=== PATIENT | female | born 1945 | race Caucasian/White ===

== ENCOUNTER 2019-05-23 11:58 | Emergency (ER) | payer MEDICARE, SELFPAY ==
--- NOTE | ~2019-05-23 | XR_ITS ---
EXAMINATION: XR lumbar spine 2-3V DATE: 05/23/2019 13:29 INDICATION: Low back pain. Fall. TECHNIQUE: 3 views of lumbar spine were obtained. COMPARISON: Lumbar spine radiographs 07/31/2015 FINDINGS: There is 11 degrees dextroscoliosis of thoracolumbar spine. There is a chronic compression fracture of L4 with changes of vertebroplasty. There is moderately decreased disc height at L3-L4. Th ere are endplate osteophytes at all levels. There is at least mild multilevel facet joint osteoarthri tis. A surgical clip overlies the pelvis. IMPRESSION: 1. Moderate lumbar spondylosis. 2. Thoracolumbar dextroscoliosis. Reviewed, dictated and finalized at location A. LE ATTENDANT
--- NOTE | ~2019-05-23 | XR_ITS ---
EXAMINATION: XR wrist LT 2V EXAM DATE: 05/23/2019 13:29 INDICATION: Initial encounter following injury, with pain of the left wrist. TECHNIQUE: Left wrist frontal, frontal with ulnar deviation, oblique and lateral projections obtained and reviewed. Correlation was made with left hand same date. FINDINGS: Again there is acute left fifth metacarpal shaft fracture. There are no acute left wrist fr actures or dislocations identified. There is no subcutaneous gas. The soft tissue is unremarkable. There are no radiopaque foreign bodies. There is triscaphe primary osteoarthritis. IMPRESSION: 1. Left fifth metacarpal shaft fracture. 2. No left wrist fractures. Reviewed, dictated and finalized at location B. ER CENTER DIRECTOR
--- NOTE | ~2019-05-23 | XR_ITS ---
EXAMINATION: XR hand LT 2V DATE: 05/23/2019 13:29 INDICATION: Left hand pain. Fall. TECHNIQUE: 3 views of left hand were obtained. COMPARISON: None. FINDINGS: Bone alignment is normal. There is a comminuted fracture of distal diaphysis of fifth metac arpal. The main distal fracture fragment demonstrates 1 mm palmar displacement. There is diffuse oste openia. There is severe osteoarthritis of triscaphe joint and first carpometacarpal joint. There is m ild to moderate osteoarthritis of many of the interphalangeal joints. IMPRESSION: 1. Comminuted fracture of distal diaphysis of fifth metacarpal. Reviewed, dictated and finalized at location A. NEERING LIBRARIAN
[2019-05-23 12:23] VITALS: BP 145/71; PULSE 83; RESP 16; TEMP 36.8; O2SAT 97
[2019-05-23 12:36] LABS: Appearance Urine Cloudy (Clear); Bilirubin Urine Negative (Negative); Color Urine Amber (Yellow); Glucose Urine UA Negative (Negative); Ketones Urine Negative (Negative); Leukocyte Esterase Ur Trace LEU/UL (Negative); Nitrate Urine Negative (Negative); Protein Urine Negative (Negative); Specific Grav Ur >= 1.030 (1.010-1.020)
[2019-05-23 12:41] LABS: Add Urine Microscopic? YES; Bacteria Urine 1+ /hpf; Blood Urine Trace-Intact (Negative); Mucus Urine Moderate /lpf; RBC Urine 0-2 /hpf (0-2); Squamous Epithelial Cell Urine Moderate /hpf (Few); WBC Urine 0-3 /hpf (0-3)
[2019-05-23] MEDS: KETOROLAC (*BKC) 60 MG/2 ML VIAL IM (13:11)
--- NOTE | 2019-05-23 13:18 | ED.BACK ---
HPI - Back Pain/Injury General Chief Complaint: Back Pain/Injury Stated Complaint: fell back pain Source: patient and family Mode of arrival: ambulatory History of Present Illness HPI Narrative: 74-year-old female with history of dementia and hypertension presents after she fell earlier while in her bathroom did not strike her head there was no loss of consciousness currently no blurry vision no nausea or vomiting the patient did hit her left hand habit has good range of motion although there is bruising and swelling, also has history of compression fractures with some lumbar fusion, and is having lower back pain with some small contusion to the left lower back area. Currently no chest pain no shortness of breath no rib pain no nausea vomiting abdominal pain no constipation or diarrhea. MD elicited complaint: back pain and fall Pertinent past history: prior back pain Onset (ago): hour(s) Timing: constant Severity: mild Pain scale (0-10): 4 Similar Symptoms Previously: No Quality: dull Location: lumbar spine Related Data Home Medications Medication Instructions Recorded Confirmed azithromycin 05/23/19 05/23/19 bupropion HCl PO 05/23/19 donepezil mg 05/23/19 escitalopram oxalate mg 05/23/19 felodipine mg PO 05/23/19 levothyroxine 05/23/19 losartan 05/23/19 memantine mg 05/23/19 omeprazole 05/23/19 prednisone 05/23/19 raloxifene mg 05/23/19 simvastatin mg 05/23/19 Allergies Allergy/AdvReac Type Severity Reaction Status Date / Time hydrochlorothiazide Allergy Unknown Flushing Verified 05/23/19 13:22 iohexol Allergy Hives Verified 05/23/19 13:22 [From contrast - CT, X-RAY] Review of Systems Review of Systems: All systems reviewed & are unremarkable except as noted in HPI and below PMFSH Past Medical History Medical History Dementia HTN (hypertension) Family History Family History Mother Diabetes mellitus Family history of malignant neoplasm Father Cerebrovascular accident Family history of heart disease in male family member before age 55 Social History Social History Smoking status: Never smoker Alcohol intake: never Exam Const: General: no acute distress and alert Other: Has a history of dementia HENMT: Head: contusion and hematoma Other: left hand and left lower back area Eyes: Conjunctivae: conjunctivae normal Pupils: Equal, round and reactive pupils present Neck: Neck: normal visual inspection and no lymphadenopathy Chest: Chest palpation & inspection: normal inspection of the chest Resp: Effort & Inspection: normal respiratory effort Auscultation: clear to auscultation bilaterally Cardio: Rate: regular rate Rhythm: regular rhythm : General: Yes no CVA tenderness Skin: General skin exam: normal color Rashes: no rashes Neuro: General: moves all extremities Extrem: General: normal to inspection Psych: Appearance: grossly normal Affect: normal affect Course Vital Signs Vital signs: Vital Signs Temperature 36.8 C 05/23/19 12:23 Pulse Rate 83 05/23/19 12:23 Respiratory Rate 16 05/23/19 12:23 Blood Pressure 145/71 H 05/23/19 12:23 Pulse Oximetry 97 05/23/19 12:23 Temperature 36.8 C 05/23/19 12:23 Pulse Rate 83 05/23/19 12:23 Respiratory Rate 16 05/23/19 12:23 Blood Pressure 145/71 H 05/23/19 12:23 Pulse Oximetry 97 05/23/19 12:23 MDM - Back Pain/Injury Lab Data Labs: Lab Results 05/23/19 Range/Units 12:27 Urine Color Shara A (Yellow) Urine Appearance Cloudy A (Clear) Urine pH 6.0 (5.0-8.0) Ur Specific [place] >= 1.030 H (1.010-1.020) Urine Protein Negative (Negative) Urine Glucose (UA) Negative (Negative) Urine Ketones Negative (Negative) Ur Blood (Man) Trace-intact H (Negative) Urine Nitrat
[2019-05-23 14:22] VITALS: RESP 17
--- NOTE | 2019-05-23 14:30 | PC.NURSE ---
JENNIFER ULNAR GUTTER SPLINT DR GOMEZ
== END 2019-05-23 14:23 | disposition home or self-care (01) ==
PROVIDERS: Emergency Provider Emergency Medicine; PCP Internal Medicine
DX: S62.327A Displaced fracture of shaft of fifth metacarpal bone, left hand, initial encounter for closed fracture (principal); W19.XXXA Unspecified fall, initial encounter
CPT/HCPCS: 29125; 72100; 73100; 73120; 81001; 96372; 99282; 99284; A4565; J1885

== ENCOUNTER 2020-02-14 09:27 | Outpatient (CLI) | payer MEDICARE, SELFPAY ==
[2020-02-14 09:44] LABS: Basophils Absolute Auto 0.03 K/mm3 (0.00-0.10); Basophils Percent Auto 0.5 % (0.0-1.0); Eosinophils Absolute Auto 0.12 K/mm3 (0.02-0.50); Hematocrit 40.9 % (35.0-42.0); Hemoglobin 12.7 g/dL (11.7-13.8); Immature Granulocyte Absolute 0.02 K/mm3 (0.00-0.00); Immature Granulocyte Percent A 0.3 % (0.0-0.0); Lymphocytes Absolute Auto 1.85 K/mm3 (1.10-4.50); Lymphocytes Percent Auto 30.3 % (18.0-42.0); Mean Corpuscular HGB Conc 31.1 g/dL (32.0-36.0); Mean Corpuscular Hemoglobin 32.6 pg (27.0-31.0); Mean Corpuscular Volume 104.9 fL (78.0-102.0); Mean Platelet Volume 10.9 fl (9.2-11.8); Monocytes Absolute Auto 0.55 K/mm3 (0.10-0.90); Neutrophils Absolute Auto 3.5 K/mm3 (1.7-7.2); Neutrophils Percent Auto 57.9 % (50.0-70.0); Platelet Count Result 233 K/mm3 (150-420); Red Cell Distribution Width 13.3 % (11.6-14.4); White Blood Count 6.1 K/mm3 (4.8-10.8)
[2020-02-14 10:43] LABS: Alanine Aminotransferase 19 U/L (14-59); Albumin Level 3.3 g/dL (3.4-5.0); Alkaline Phosphatase 90 U/L (46-116); Anion Gap 8 mmol/L (8-16); Aspartate Amino Transferase 15 U/L (15-37); Bilirubin,Total 0.4 mg/dL (0.00-1.00); Blood Urea Nitrogen 25 mg/dL (7-18); Calcium 8.9 mg/dL (8.5-10.1); Carbon Dioxide 28 mmol/L (21-32); Chloride 107 mmol/L (98-108); Estimated Glomerular Filt Rate 50; Glucose 160 mg/dL (70-99); Osmolality Calculated 303 mOsm/kg (285-295); Potassium 4.3 mmol/L (3.5-5.1); Sodium 143 mmol/L (136-145); Thyroid Stimulating Hormone 4.97 uIU/mL (0.36-3.74); Total Protein 6.5 g/dL (6.4-8.2); Vitamin B12 252 pg/mL (193-986)
== END 2020-02-14 09:28 | disposition home or self-care (01) ==
LOC: CHSLAB 09:30
PROVIDERS: PCP Internal Medicine
DX: G31.83 Neurocognitive disorder with Lewy bodies (principal); F02.80 Dementia in other diseases classified elsewhere, unspecified severity, without behavioral disturbance, psychotic disturbance, mood disturbance, and anxiety; Z79.899 Other long term (current) drug therapy
CPT/HCPCS: 36415; 80053; 82607; 84443; 85025

== ENCOUNTER 2020-02-28 13:31 | Outpatient (CLI) | payer MEDICARE, SELFPAY ==
[2020-02-28 15:00] LABS: Vitamin B12 328 pg/mL (193-986)
== END 2020-02-28 13:32 | disposition home or self-care (01) ==
LOC: CHSLAB 13:41
PROVIDERS: PCP Internal Medicine
DX: G31.83 Neurocognitive disorder with Lewy bodies (principal); F02.80 Dementia in other diseases classified elsewhere, unspecified severity, without behavioral disturbance, psychotic disturbance, mood disturbance, and anxiety
CPT/HCPCS: 36415; 82607

== ENCOUNTER 2020-06-01 09:17 | Outpatient (CLI) | payer MEDICARE, SELFPAY ==
[2020-06-01 13:16] LABS: SARS-CoV-2 Ag Positive (Negative)
== END 2020-06-01 09:18 | disposition home or self-care (01) ==
PROVIDERS: PCP Internal Medicine; Visit Provider Internal Medicine
DX: U07.1 COVID-19 (principal)
CPT/HCPCS: 87426; C9803

== ENCOUNTER 2020-06-11 12:32 | Inpatient (IN) | payer MEDICARE, SELFPAY ==
--- NOTE | ~2020-06-11 | XR_ITS ---
XR chest 2V DATE: 06/11/2020 13:41 INDICATION: Shortness of breath and weakness TECHNIQUE: AP and lateral views COMPARISON: 08/09/2018 PA and lateral chest FINDINGS: Borderline heart size. Aortic calcification. No hilar or mediastinal enlargement. Mild patchy infiltrate is suggested in the right mid and lower lung zones. The lungs otherwise appear clear. No pleural effusion or pulmonary vascular congestion or pneumothorax. Diffuse osteopenia. There is prominent anterior wedging and loss of height of a thoracolumbar vertebral body. There appea rs to be vertebroplasty at a lower lumbar vertebral body. IMPRESSION: Patchy right mid and lower lung field infiltrate suggesting pneumonia. Clinical correlati on is advised. Prominent anterior wedging and loss of height of a thoracolumbar vertebral body; diffuse osteopenia Reviewed, dictated and finalized at location B. OSOFT BI CONSULTANT IMPRESSION: Patchy right mid and lower lung field infiltrate suggesting pneumon ia. Clinical correlation is advised. Prominent anterior wedging and loss of height of a thoracolumbar vertebral body ; diffuse osteopenia
--- NOTE | ~2020-06-11 | NM_ITS ---
EXAMINATION: NM pulmonary perfusion DATE: 06/12/2020 11:05 INDICATION: Dyspnea with elevated d-dimer TECHNIQUE: 5.3 mCi Tc-99m MAA was administered IV. Scintigraphic images of the chest were obtained. FINDINGS: There is relatively homogeneous perfusion throughout the lungs. Perfusion defect identified. IMPRESSION: 1. Low probability for pulmonary embolism. Reviewed, dictated and finalized at location A. O RIGGER
[2020-06-11 12:53] VITALS: BP 130/84; PULSE 79; RESP 20; TEMP 37.1; O2SAT 93
--- NOTE | 2020-06-11 12:59 | ECG_ITS ---
Measurements Intervals Gerber Rate: 63 P: 67 NM: 213 QRS: -48 QRSD: 105 T: 29 QT: 452 QTc: 466 Interpretive Statements SINUS RHYTHM WITH FIRST DEGREE AV BLOCK LEFT ANTERIOR FASCICULAR BLOCK BORDERLINE T WAVE ABNORMALITY- ANT/INF LEADS BASELINE ARTIFACT- II, III, AVR, AVF ABNORMAL ECG Electronically Signed On 06-11-2020 13:52:20 HOUSEKEEPER AND LAUNDRY ASSISTANT by Matt Thornton D.O.
[2020-06-11] MEDS: SODIUM CHLORIDE 0.9% IV 500 ML 999 ML IV CONT (13:24)
[2020-06-11 13:37] LABS: Base Excess ABG -4.8 mmol/L (0-2); Basophils Absolute Auto 0.02 K/mm3 (0.00-0.10); Basophils Percent Auto 0.4 % (0.0-1.0); Eosinophils Absolute Auto 0.02 K/mm3 (0.02-0.50); Eosinophils Percent Auto 0.4 % (1.0-6.0); HCO3 ABG 18.3 mmol/L (23-29); Hematocrit 35.1 % (35.0-42.0); Hemoglobin 11.4 g/dL (11.7-13.8); Immature Granulocyte Absolute 0.03 K/mm3 (0.00-0.00); Immature Granulocyte Percent A 0.5 % (0.0-0.0); Lymphocytes Absolute Auto 0.67 K/mm3 (1.10-4.50); Lymphocytes Percent Auto 12.2 % (18.0-42.0); Mean Corpuscular HGB Conc 32.5 g/dL (32.0-36.0); Mean Corpuscular Hemoglobin 31.8 pg (27.0-31.0); Mean Corpuscular Volume 97.8 fL (78.0-102.0); Monocytes Percent Auto 9.1 % (2.0-11.0); Neutrophils Absolute Auto 4.2 K/mm3 (1.7-7.2); Neutrophils Percent Auto 77.4 % (50.0-70.0); Oxygen Content ABG 16.3 %vol (16.0-22.0); Oxygen Saturation ABG 96.3 % (95-97); PCO2 ABG 28.4 mmHg (35-45); Platelet Count Result 227 K/mm3 (150-420); Red Blood Count 3.59 M/mm3 (4.20-5.40); Red Cell Distribution Width 13.4 % (11.6-14.4); Total Hemoglobin 12.1 g/dL; White Blood Count 5.5 K/mm3 (4.8-10.8); pH ABG 7.43 (7.35-7.45)
[2020-06-11 13:42] LABS: Site Drawn LEFT RADIAL
[2020-06-11 13:43] LABS: Device ROOM AIR; Modified Allen's Test Pass
[2020-06-11 13:52] LABS: Partial Thromboplastin Time 26.9 SEC (23.90-30.70); Prothrombin Time 10.5 Seconds (9.50-12.10)
[2020-06-11 13:55] LABS: Albumin Level 2.5 g/dL (3.4-5.0); Alkaline Phosphatase 71 U/L (46-116); Anion Gap 13 mmol/L (8-16); Aspartate Amino Transferase 16 U/L (15-37); Bilirubin,Total 0.6 mg/dL (0.00-1.00); Blood Urea Nitrogen 11 mg/dL (7-18); Calcium 8.5 mg/dL (8.5-10.1); Carbon Dioxide 24 mmol/L (21-32); Chloride 104 mmol/L (98-108); Estimated CRCL calculation 39 ml/min; Estimated Glomerular Filt Rate 48; Glucose 165 mg/dL (70-99); Lactic Acid Reflex 2.4 mmol/L (0.4-2.0); Magnesium 1.8 mg/dL (1.8-2.4); Osmolality Calculated 295 mOsm/kg (285-295); Potassium 3.4 mmol/L (3.5-5.1); Sodium 141 mmol/L (136-145); Total Protein 6.1 g/dL (6.4-8.2); Troponin I 6.5 ng/L (0.00-60.4)
[2020-06-11 13:57] LABS: CRP 4.3 mg/dL (0.0-0.9)
[2020-06-11 13:58] LABS: BNP 34.2 pg/mL (0-100)
[2020-06-11 14:00] LABS: Influenza Control Valid (Valid)
[2020-06-11 14:01] LABS: SARS-CoV-2 Ag Negative (Negative)
[2020-06-11 14:03] LABS: Alanine Aminotransferase 7 U/L (14-59)
--- NOTE | 2020-06-11 14:16 | ED.WEAKNESS ---
HPI - Weakness General Chief complaint: Weakness Stated complaint: tested + two weeks ago weak diarrhea Source: patient and family Mode of arrival: ambulatory Limitations: no limitations History of Present Illness HPI Narrative: This is a 75-year-old female presents from home with her daughter after she developed spell of weakness over the last 24 hours with some mild shortness of breath, and diminish O2 saturations. The patient recently had been diagnosed with COVID on May 29, currently there is no cough no fever chills no nausea vomiting no chest pain no abdominal pain. Patient has a history of dementia, hyperlipidemia and hypertension. Currently she is resting comfortable O2 sats currently are 93% on room air with no current shortness of breath no cough. According to her daughter the patient has a history of diabetes but is controlled with diet and has not been on any medications for diabetes. MD Complaint: generalized weakness Onset (ago): day(s) Duration: constant Location: generalized Migration: none Severity: moderate Associated symptoms: loss of appetite and shortness of breath Related Data Home Medications Medication Instructions Recorded Confirmed donepezil 10 mg PO DAILY 05/23/19 06/11/20 escitalopram oxalate [Lexapro] 20 mg PO DAILY 05/23/19 06/11/20 felodipine 10 mg PO HS 05/23/19 06/11/20 levothyroxine 75 mcg PO DAILY 05/23/19 06/11/20 memantine 10 mg PO BID 05/23/19 06/11/20 omeprazole 20 mg PO DAILY 05/23/19 06/11/20 raloxifene 60 mg PO DAILY 05/23/19 06/11/20 simvastatin 10 mg PO HS 05/23/19 06/11/20 bupropion HCl 100 mg PO DAILY 06/11/20 06/11/20 losartan 100 mg PO DAILY 06/11/20 06/11/20 Allergies Allergy/AdvReac Type Severity Reaction Status Date / Time hydrochlorothiazide Allergy Unknown Flushing Verified 06/11/20 13:00 iohexol Allergy Hives Verified 06/11/20 13:00 [From contrast - CT, X-RAY] Review of Systems Review of Systems: All systems reviewed & are unremarkable except as noted in HPI and below PMFSH Past Medical History Medical History Anxiety Arthritis Dementia Depression Diabetes Diarrhea Dizziness GERD (gastroesophageal reflux disease) Headache High cholesterol HTN (hypertension) Hypothyroidism Osteoporosis Vertigo Vision abnormalities Weight gain Surgical History Surgical History History of spinal surgery Cemented disc, lumbar Family History Family History Mother Diabetes mellitus Family history of malignant neoplasm Father Cerebrovascular accident Family history of heart disease in male family member before age 55 Other Arthritis Social History Social History Smoking status: Never smoker Alcohol intake: never Gender identity (if verbalized by the patient): Female Exam Const: General: no acute distress Orientation/consciousness: confusion HENMT: Head: normal to inspection Eyes: Conjunctivae: conjunctivae normal Pupils: Equal, round and reactive pupils present EOM: EOMs intact bilaterally Neck: Neck: normal visual inspection, no lymphadenopathy and no meningeal signs Chest: Chest palpation & inspection: normal inspection of the chest Resp: Effort & Inspection: normal respiratory effort Auscultation: diminished lung sounds Cardio: Rate: regular rate Rhythm: regular rhythm GI: GI Palp: Yes Soft to palpation Percussion: Yes normal to percussion : General: Yes no CVA tenderness Back/Spine/Pelvis: Back: no CVA tenderness Skin: General skin exam: normal color Rashes: no rashes Extrem: General: normal to inspection Psych: Mental Status: mental status grossly normal Thought content: Yes Normal thought content present Course Course Emergency Course: Reviewed findings with family and the hannah
[2020-06-11 14:45] VITALS: BP 111/61; PULSE 80; RESP 20; O2SAT 93
--- NOTE | 2020-06-11 14:50 | PC.NURSE ---
Patient admitted to room 208, oriented to room and call light. In bed with rails up and exit alarm on. Daughter Anjali at bedside.
[2020-06-11 15:28] VITALS: BMI 38.5
--- NOTE | 2020-06-11 15:51 | ADMGEN ---
This patient, Mary Kent, was admitted to 2nd Floor Room 208-2. Patient/family oriented to hospital policies and general routines including ID bracelet, bed and alarms, visiting hours, pain management, procedures, bathroom and other care routines, personal items, smoking policy, room service/diet, and visiting hours. Information on how to activate the Rapid Response Team has been discussed. Patient/Family are encouraged to report perceived risks to care and to ask questions if they do not understand what they are told or what they should do.
[2020-06-11] MEDS: SODIUM CHLORIDE 0.9% IV 1,000 ML 100 ML IV CONT (15:53)
[2020-06-11 16:00] VITALS: BP 120/72; PULSE 66; RESP 18; TEMP 37.3; O2SAT 92
[2020-06-11 16:32] LABS: Reflex Lactic Acid Yes or No Add Lactic
[2020-06-11] MEDS: MEMANTINE 5 MG TABLET 10 MG PO (16:45)
[2020-06-11] MEDS: ENOXAPARIN 100 MG/ML SYRINGE 90 MG SUB-Q (16:46)
[2020-06-11 16:53] LABS: Glucose Point of Care 180 (65-105)
[2020-06-11 17:08] LABS: Lactic Acid 6.5 mmol/L (0.4-2.0)
[2020-06-11 20:00] VITALS: BP 138/57; PULSE 70; RESP 16; TEMP 37.4; O2SAT 93
[2020-06-11] MEDS: FELODIPINE 5 MG TAB CR 10 MG PO (20:55)
[2020-06-11] MEDS: ACETAMINOPHEN 325 MG TABLET 650 MG PO (20:56)
[2020-06-11] MEDS: SIMVASTATIN 10 MG TABLET PO (20:57)
[2020-06-11 21:13] LABS: Glucose Point of Care 96 (65-105)
[2020-06-12] VITALS (8 sets, daily range): BP systolic 113–139; BP diastolic 48–66; PULSE 62–80; RESP 14–20; TEMP 36.5–37.2; O2SAT 91–98
[2020-06-12] MEDS: SODIUM CHLORIDE 0.9% IV 1,000 ML 100 ML IV CONT ×3 (02:44→21:25)
[2020-06-12] MEDS: ENOXAPARIN 100 MG/ML SYRINGE 90 MG SUB-Q (03:41)
[2020-06-12 05:51] LABS: Basophils Absolute Auto 0.01 K/mm3 (0.00-0.10); Basophils Percent Auto 0.2 % (0.0-1.0); Eosinophils Absolute Auto 0.08 K/mm3 (0.02-0.50); Eosinophils Percent Auto 1.9 % (1.0-6.0); Hematocrit 32.2 % (35.0-42.0); Hemoglobin 10.1 g/dL (11.7-13.8); Immature Granulocyte Absolute 0.03 K/mm3 (0.00-0.00); Immature Granulocyte Percent A 0.7 % (0.0-0.0); Lymphocytes Absolute Auto 0.95 K/mm3 (1.10-4.50); Mean Corpuscular HGB Conc 31.4 g/dL (32.0-36.0); Mean Corpuscular Volume 98.8 fL (78.0-102.0); Mean Platelet Volume 9.8 fl (9.2-11.8); Monocytes Absolute Auto 0.48 K/mm3 (0.10-0.90); Monocytes Percent Auto 11.6 % (2.0-11.0); Neutrophils Absolute Auto 2.6 K/mm3 (1.7-7.2); Neutrophils Percent Auto 62.6 % (50.0-70.0); Platelet Count Result 217 K/mm3 (150-420); Red Blood Count 3.26 M/mm3 (4.20-5.40); Red Cell Distribution Width 13.4 % (11.6-14.4); White Blood Count 4.1 K/mm3 (4.8-10.8)
[2020-06-12 05:59] LABS: Add Urine Microscopic? YES; Appearance Urine Clear (Clear); Bilirubin Urine Negative (Negative); Blood Urine Negative (Negative); Color Urine Yellow (Yellow); Glucose Urine UA Negative (Negative); Ketones Urine Trace (Negative); Leukocyte Esterase Ur Trace LEU/UL (Negative); Nitrate Urine Negative (Negative); Protein Urine Negative (Negative); Urobilinogen Urine 0.2 mg/dL (0.2-1.0)
[2020-06-12 06:06] LABS: Alanine Aminotransferase 9 U/L (14-59); Albumin Level 2.2 g/dL (3.4-5.0); Alkaline Phosphatase 62 U/L (46-116); Anion Gap 11 mmol/L (8-16); Aspartate Amino Transferase 12 U/L (15-37); Bilirubin,Total 0.5 mg/dL (0.00-1.00); Blood Urea Nitrogen 6 mg/dL (7-18); Calcium 7.5 mg/dL (8.5-10.1); Carbon Dioxide 26 mmol/L (21-32); Chloride 109 mmol/L (98-108); Estimated CRCL calculation 46 ml/min; Estimated Glomerular Filt Rate 58; Glucose 122 mg/dL (70-99); Osmolality Calculated 300 mOsm/kg (285-295); Sodium 146 mmol/L (136-145); Total Protein 5.4 g/dL (6.4-8.2)
[2020-06-12 06:12] LABS: RBC Urine 0-2 /hpf (0-2); Squamous Epithelial Cell Urine Few /hpf (Few)
[2020-06-12 06:12] LABS: Lactic Acid Reflex 1.2 mmol/L (0.4-2.0)
[2020-06-12 06:13] LABS: Bacteria Urine None seen /hpf
[2020-06-12] MEDS: KCL 20 MEQ/SW 100 ML 100 ML 50 MEQ IVPB (07:23)
--- NOTE | 2020-06-12 08:18 | PM.IMHP ---
H&P: HPI History of Present Illness Date/Time: 06/12/20 08:18 Chief Complaint: SOB Narrative: Mary Kent is a 75 year old female with a Hx of Lewy body Dementia and therefor a poor historian. She came into the hospital with her daughter who provided history of events per ER documentation. Pt was having episodes of weakness, mild SOB, and decreased oxygen saturation. Pt was positive for COVID on June 01, 2020 but is negative after a Rapid COVID test was performed in the ER. Pt was negative for fever, chills, cough, N/V, body aches, and other abdominal issues. Pt has a PMHx of Dementia, depression, anxiety, diet controlled diabetes, GERD, hypercholesterolemia, HTN, hypothyroidism. Pt was found to have right middle and lower lobe pneumonia and was started on Rocephin and Azithromycin in the ER. Review of Systems Constitutional: Constitutional: Reports no additional constitutional complaints, Denies body ache(s), Denies chills, Denies fever(s), Denies headache(s) and Reports other (Pt states she just feels icky but unable to give more detail) Cardiovascular: Cardiovascular: Reports no additional cardiovascular complaints and Denies chest pain Respiratory: Respiratory: Reports no additional respiratory complaints and Denies dyspnea Gastrointestinal: Gastrointestinal: Reports no additional gastrointestinal complaints [facility] Past Medical History Medical History (Updated 06/12/20 @ 10:12 by ROLAN ComerN-C) Anxiety Arthritis Basal cell carcinoma (BCC) of dorsum of nose Dementia Depression Diabetes Diarrhea Dizziness GERD (gastroesophageal reflux disease) Headache High cholesterol HTN (hypertension) Hypothyroidism Osteoporosis Vertigo Vision abnormalities Weight gain Surgical History Surgical History History of spinal surgery Cemented disc, lumbar Family History Family History Mother Diabetes mellitus Family history of malignant neoplasm Father Cerebrovascular accident Family history of heart disease in male family member before age 55 Other Arthritis Social History Social History Smoking status: Never smoker Second hand tobacco smoke exposure: No Alcohol intake: never Substance use: never Substance use type: does not use Gender identity (if verbalized by the patient): Female Spiritual care concerns: No Meds Home Medications and Allergies Home Medications Medication Instructions Recorded Confirmed Type donepezil 10 mg PO DAILY 05/23/19 06/11/20 History escitalopram oxalate [Lexapro] 20 mg PO DAILY 05/23/19 06/11/20 History felodipine 10 mg PO HS 05/23/19 06/11/20 History levothyroxine 75 mcg PO DAILY 05/23/19 06/11/20 History memantine 10 mg PO BID 05/23/19 06/11/20 History omeprazole 20 mg PO DAILY 05/23/19 06/11/20 History raloxifene 60 mg PO DAILY 05/23/19 06/11/20 History simvastatin 10 mg PO HS 05/23/19 06/11/20 History bupropion HCl 100 mg PO DAILY 06/11/20 06/11/20 History losartan 100 mg PO DAILY 06/11/20 06/11/20 History Allergies Allergy/AdvReac Type Severity Reaction Status Date / Time hydrochlorothiazide Allergy Unknown Flushing Verified 06/11/20 13:00 iohexol Allergy Hives Verified 06/11/20 13:00 [From contrast - CT, X-RAY] Vital Signs Vital Signs - 24 hr 06/11/20 12:53 06/11/20 14:45 06/11/20 16:00 Temperature 98.7 F 99.2 F Pulse Rate 79 80 66 Respiratory Rate 20 20 18 Blood Pressure 130/84 111/61 120/72 Pulse Oximetry 93 93 92 06/11/20 20:00 06/12/20 00:00 06/12/20 03:49 Temperature 99.3 F 98.2 F 98.0 F Pulse Rate 70 62 66 Respiratory Rate 16 18 14 Blood Pressure 138/57 L 113/48 L 116/66 Pulse Oximetry 93 96 98 06/12/20 07:47 Temperature 98.9 F Pulse Rate 79 Respiratory Rate 16 Blood Pressure 120/50 L Pulse Oximetry 91 Exam Const: General: co
[2020-06-12] MEDS: LEVOTHYROXINE SODIUM 75 MCG TABLET PO (08:24)
[2020-06-12] MEDS: LOSARTAN POTASSIUM 50 MG TABLET 100 MG PO (08:24)
[2020-06-12] MEDS: CALCIUM CARBONATE (OSCAL) 500 MG TABLET PO ×2 (08:24→16:33)
[2020-06-12] MEDS: MEMANTINE 5 MG TABLET 10 MG PO ×2 (08:24→16:33)
[2020-06-12] MEDS: ESCITALOPRAM OXALATE 10 MG TABLET 20 MG PO (08:24)
[2020-06-12] MEDS: DONEPEZIL HCL 5 MG TABLET 10 MG PO (08:25)
[2020-06-12] MEDS: PANTOPRAZOLE 40 MG TABLET PO (09:35)
[2020-06-12] MEDS: PROCHLORPERAZINE MALEATE 5 MG TABLET PO (10:01)
[2020-06-12 11:37] LABS: Glucose Point of Care 135 (65-105)
[2020-06-12 11:37] LABS: Glucose Point of Care 108 (65-105)
--- NOTE | 2020-06-12 13:29 | PHAR ---
Meds from home identified [facility] Rx#[id number] Raloxifene 60 mg tablet daily [facility] Rx# [id number] Bupropion SR 100 mg daily
[2020-06-12] MEDS: RALOXIFENE 60 MG TABLET PO (13:59)
[2020-06-12] MEDS: BUPROPION SR 100 MG TABLET PO (13:59)
[2020-06-12 16:41] LABS: Glucose Point of Care 117 (65-105)
--- NOTE | 2020-06-12 18:07 | PC.NURSE ---
1800 up and down in bed. up in chair for supper. refuses supper. belches frequent.. did sip on white soda, refuses Mylanta. had two sm scant loose stool. only in tissue now in hat. back to bed at this time. stand by assist. hob up. call light in reach. alarms on. vin horton
[2020-06-12] MEDS: FELODIPINE 2.5 MG TABCR 10 MG PO (20:33)
[2020-06-12] MEDS: SIMVASTATIN 10 MG TABLET PO (21:24)
[2020-06-13 01:57] LABS: Glucose Point of Care 109 (65-105)
[2020-06-13 04:00] VITALS: BP 135/57; PULSE 79; RESP 20; TEMP 36.2; O2SAT 92
[2020-06-13 05:37] LABS: Hematocrit 32.1 % (35.0-42.0); Hemoglobin 10.1 g/dL (11.7-13.8); Mean Corpuscular HGB Conc 31.5 g/dL (32.0-36.0); Mean Corpuscular Hemoglobin 31.1 pg (27.0-31.0); Mean Corpuscular Volume 98.8 fL (78.0-102.0); Mean Platelet Volume 9.7 fl (9.2-11.8); Platelet Count Result 253 K/mm3 (150-420); Red Blood Count 3.25 M/mm3 (4.20-5.40); Red Cell Distribution Width 13.5 % (11.6-14.4); White Blood Count 5.4 K/mm3 (4.8-10.8)
[2020-06-13 05:49] LABS: Anion Gap 10 mmol/L (8-16); Blood Urea Nitrogen 2 mg/dL (7-18); Calcium 7.6 mg/dL (8.5-10.1); Carbon Dioxide 24 mmol/L (21-32); Chloride 111 mmol/L (98-108); Estimated CRCL calculation 54 ml/min; Estimated Glomerular Filt Rate > 60; Glucose 126 mg/dL (70-99); Magnesium 1.5 mg/dL (1.8-2.4); Osmolality Calculated 298 mOsm/kg (285-295); Potassium 3.1 mmol/L (3.5-5.1); Sodium 145 mmol/L (136-145)
[2020-06-13 08:00] VITALS: BP 136/61; PULSE 90; RESP 20; TEMP 37.5; O2SAT 93
[2020-06-13] MEDS: PANTOPRAZOLE 40 MG TABLET PO (08:49)
[2020-06-13] MEDS: RALOXIFENE 60 MG TABLET PO (08:49)
[2020-06-13] MEDS: MEMANTINE 5 MG TABLET 10 MG PO ×2 (08:49→16:57)
[2020-06-13] MEDS: CALCIUM CARBONATE (OSCAL) 500 MG TABLET PO ×2 (08:49→16:57)
[2020-06-13] MEDS: LEVOTHYROXINE SODIUM 75 MCG TABLET PO (08:49)
[2020-06-13] MEDS: BUPROPION SR 100 MG TABLET PO (08:49)
[2020-06-13] MEDS: DONEPEZIL HCL 5 MG TABLET 10 MG PO (08:49)
[2020-06-13] MEDS: SODIUM CHLORIDE 0.9% IV 1,000 ML 100 ML IV CONT ×2 (08:50→17:35)
[2020-06-13] MEDS: ESCITALOPRAM OXALATE 10 MG TABLET 20 MG PO (08:50)
[2020-06-13] MEDS: LOSARTAN POTASSIUM 50 MG TABLET 100 MG PO (08:50)
[2020-06-13] MEDS: ENOXAPARIN 40 MG/0.4 ML SYRINGE SUB-Q (08:51)
[2020-06-13] MEDS: POTASSIUM CHLORIDE 20 MEQ PACKET (FOR LIQUID) 40 MEQ PO (09:02)
[2020-06-13] MEDS: POTASSIUM CHLORIDE 20 MEQ TABLET 40 MEQ PO (09:04)
[2020-06-13] MEDS: PROCHLORPERAZINE MALEATE 5 MG TABLET PO (09:04)
[2020-06-13] MEDS: MAGNESIUM SULF 4 GM/WATER100ML 4 GM/100 ML BAG IVPB (09:05)
--- NOTE | 2020-06-13 10:30 | PC.NURSE ---
left message for pt for need of eval
--- NOTE | 2020-06-13 11:24 | PM.IMPN ---
Progress Note: A&P Assessment and Plan (1) Pneumonia: Qualifiers: Laterality: right Lung location: middle lobe of lung Pneumonia type: due to unspecified organism Qualified Code(s): J18.9 - Pneumonia, unspecified organism Code(s): J18.9 - Pneumonia, unspecified organism Status: Acute Assessment and Plan: 06/12/2020 Radiology reports Right mid and lower lung pneumonia, Rocephin and Azithromycin started, SpO2 > 95%, administer supplemental O2 as needed, monitor VS and Pt (2) Elevated d-dimer: Code(s): R79.89 - Other specified abnormal findings of blood chemistry Status: Acute Assessment and Plan: 06/12/2020 Started on Lovenox 90 mg SQ BID, Pt to have VQ scan today, result of VQ scan was low probability of PE (3) Diabetes: Code(s): E11.9 - Type 2 diabetes mellitus without complications Status: Acute Assessment and Plan: 06/12/2020 Previous charts indicates diet controlled, ACHS Accu-Cheks, SSI, hypoglycemic protocol ordered, make any adjustments as need (4) HTN (hypertension): Code(s): I10 - Essential (primary) hypertension Status: Acute Assessment and Plan: 06/12/2020 Continue Losartan and Felodipine, monitor VS, make any adjustments as needed (5) Dementia: Code(s): F03.90 - Unspecified dementia without behavioral disturbance Status: Acute Assessment and Plan: 06/12/2020 Continue Memantine and Donepezil, attempt to reorient Pt (6) Osteoporosis: Code(s): M81.0 - Age-related osteoporosis without current pathological fracture Status: Acute Assessment and Plan: 06/12/2020 Continue Raloxifene, started on Oscal in ER. (7) Hypothyroidism: Code(s): E03.9 - Hypothyroidism, unspecified Status: Acute Assessment and Plan: 06/12/2020 Continue Levothyroxine (8) High cholesterol: Code(s): E78.00 - Pure hypercholesterolemia, unspecified Status: Acute Assessment and Plan: 06/12/2020 Continue Simvastatin (9) Depression: Code(s): F32.9 - Major depressive disorder, single episode, unspecified Status: Acute Assessment and Plan: 06/12/2020 Continue Bupropion and Lexapro, monitor Pt mood and affect. Subjective Date/time seen: 06/13/20 11:24 Pt states she feels icky again today but is not able to explain in more detail. RN for the Pt today states the Pt was complaining of an upset stomach which Compazine was given. Pt is alert and oriented to person and place. Pt did need a little help with place. Pt denies breathing difficulty, CP, urinary issues, difficulty with BMs. Pt admits she does not have a good appetite. Review of Systems Constitutional: Constitutional: Reports no additional constitutional complaints and Reports poor appetite Cardiovascular: Cardiovascular: Reports no additional cardiovascular complaints, Denies chest pain, Denies chest pain at rest and Denies chest pain with activity Respiratory: Respiratory: Reports no additional respiratory complaints, Denies chest congestion, Denies dyspnea and Denies dyspnea on exertion Gastrointestinal: Gastrointestinal: Reports no additional gastrointestinal complaints, Reports diarrhea (per RN) and Reports nausea Neurologic: Reports system reviewed and no additional complaints, except as documented Comments: Admits she was having difficulty remembering the year and season Exam Const: General: cooperative, comfortable, no acute distress, alert, awake and Physically active Nutritional Appearance: obese Resp: Effort & Inspection: normal respiratory effort Auscultation: clear to auscultation bilaterally Cardio: Rate: regular rate Heart sounds: S1 normal heart sound present and S2 normal heart sound present GI: GI Palp: Yes Soft to palpation and No Tenderness to palpation present (GI) Auscultation: Hypoactive bowel sounds present Neuro: General: oriented to person and oriented to place (with help) Speech: normal
[2020-06-13 11:57] LABS: Glucose Point of Care 143 (65-105)
[2020-06-13 12:00] VITALS: BP 134/68; PULSE 82; RESP 18; TEMP 37.2; O2SAT 95
[2020-06-13] MEDS: MAG HYDROX/AL HYDROX/SIMETH 30 ML UDC PO (12:23)
[2020-06-13 16:00] VITALS: BP 136/58; PULSE 70; RESP 16; TEMP 37.1; O2SAT 95
[2020-06-13 17:04] LABS: Glucose Point of Care 118 (65-105)
[2020-06-13 20:00] VITALS: BP 143/59; PULSE 67; RESP 20; TEMP 36.8; O2SAT 92
[2020-06-13] MEDS: FELODIPINE 2.5 MG TABCR 10 MG PO (20:38)
[2020-06-13] MEDS: SIMVASTATIN 10 MG TABLET PO (20:38)
[2020-06-13 20:56] LABS: Glucose Point of Care 98 (65-105)
--- NOTE | 2020-06-13 21:07 | PC.NURSE ---
Wellness Health Coach attempted to collect stool specimen to send to lab, bowel movement occurred, contaminated with urine. Will attempt again. spreader notified.
[2020-06-14] VITALS: BP 145/62; PULSE 73; RESP 18; TEMP 36.8; O2SAT 94
[2020-06-14 04:00] VITALS: BP 116/81; PULSE 71; RESP 18; TEMP 36.9; O2SAT 92
[2020-06-14] MEDS: SODIUM CHLORIDE 0.9% IV 1,000 ML 100 ML IV CONT ×2 (04:15→18:21)
[2020-06-14 05:27] LABS: Hematocrit 31.9 % (35.0-42.0); Hemoglobin 10.2 g/dL (11.7-13.8); Mean Corpuscular Hemoglobin 31.5 pg (27.0-31.0); Mean Corpuscular Volume 98.5 fL (78.0-102.0); Mean Platelet Volume 9.9 fl (9.2-11.8); Platelet Count Result 273 K/mm3 (150-420); Red Blood Count 3.24 M/mm3 (4.20-5.40); Red Cell Distribution Width 13.5 % (11.6-14.4); White Blood Count 5.2 K/mm3 (4.8-10.8)
[2020-06-14 05:40] LABS: Anion Gap 10 mmol/L (8-16); Blood Urea Nitrogen 1 mg/dL (7-18); Calcium 7.7 mg/dL (8.5-10.1); Carbon Dioxide 23 mmol/L (21-32); Chloride 110 mmol/L (98-108); Estimated CRCL calculation 56 ml/min; Estimated Glomerular Filt Rate > 60; Glucose 121 mg/dL (70-99); Magnesium 1.7 mg/dL (1.8-2.4); Osmolality Calculated 292 mOsm/kg (285-295); Potassium 3.5 mmol/L (3.5-5.1); Sodium 143 mmol/L (136-145)
[2020-06-14 07:30] VITALS: BP 107/51; PULSE 73; RESP 18; TEMP 37.7; O2SAT 96
[2020-06-14 08:00] LABS: Glucose Point of Care 109 (65-105)
[2020-06-14] MEDS: PROCHLORPERAZINE MALEATE 5 MG TABLET PO (08:16)
[2020-06-14] MEDS: MAGNESIUM SULF 2 GM/WATER 50ML 2 GM/50 ML BAG IVPB (08:17)
[2020-06-14] MEDS: MAG HYDROX/AL HYDROX/SIMETH 30 ML UDC PO (08:17)
[2020-06-14] MEDS: BUPROPION SR 100 MG TABLET PO (09:10)
[2020-06-14] MEDS: RALOXIFENE 60 MG TABLET PO (09:10)
[2020-06-14] MEDS: MEMANTINE 5 MG TABLET 10 MG PO ×2 (09:11→16:46)
[2020-06-14] MEDS: CALCIUM CARBONATE (OSCAL) 500 MG TABLET PO ×2 (09:11→16:47)
[2020-06-14] MEDS: LEVOTHYROXINE SODIUM 75 MCG TABLET PO (09:11)
[2020-06-14] MEDS: DONEPEZIL HCL 5 MG TABLET 10 MG PO (09:11)
[2020-06-14] MEDS: ENOXAPARIN 40 MG/0.4 ML SYRINGE SUB-Q (09:11)
[2020-06-14] MEDS: ESCITALOPRAM OXALATE 10 MG TABLET 20 MG PO (09:11)
[2020-06-14] MEDS: MAGNESIUM OXIDE 400 MG TABLET PO ×2 (09:11→16:47)
[2020-06-14] MEDS: PANTOPRAZOLE 40 MG TABLET PO (09:11)
[2020-06-14 12:00] VITALS: BP 136/57; PULSE 70; RESP 18; TEMP 36.9; O2SAT 96
[2020-06-14 12:06] LABS: Glucose Point of Care 126 (65-105)
--- NOTE | 2020-06-14 14:28 | PM.IMPN ---
Progress Note: A&P Assessment and Plan (1) Pneumonia: Qualifiers: Laterality: right Lung location: middle lobe of lung Pneumonia type: due to unspecified organism Qualified Code(s): J18.9 - Pneumonia, unspecified organism Code(s): J18.9 - Pneumonia, unspecified organism Status: Acute Assessment and Plan: 06/12/2020 Radiology reports Right mid and lower lung pneumonia, Rocephin and Azithromycin started, SpO2 > 95%, administer supplemental O2 as needed, monitor VS and Pt 06/14/2020 May possibly send Pt home tomorrow, She would benefit with PT, spoke with Daughter Maribel who lives with the Pt and she thinks PT would be a good idea. (2) Elevated d-dimer: Code(s): R79.89 - Other specified abnormal findings of blood chemistry Status: Acute Assessment and Plan: 06/12/2020 Started on Lovenox 90 mg SQ BID, Pt to have VQ scan today, result of VQ scan was low probability of PE 06/14/2020 Lovenox decreased yesterday after VQ scan results, no increase in Oxygen demands, no calf or leg tenderness, no pitting edema bilateral LE (3) Diabetes: Code(s): E11.9 - Type 2 diabetes mellitus without complications Status: Acute Assessment and Plan: 06/12/2020 Previous charts indicates diet controlled, ACHS Accu-Cheks, SSI, hypoglycemic protocol ordered, make any adjustments as need 06/14/2020 Diet changes to Consistent Carb Diet, glucose levels look good. (4) HTN (hypertension): Code(s): I10 - Essential (primary) hypertension Status: Acute Assessment and Plan: 06/12/2020 Continue Losartan and Felodipine, monitor VS, make any adjustments as needed 06/14/2020 no adjustments needed at this time. (5) Dementia: Code(s): F03.90 - Unspecified dementia without behavioral disturbance Status: Acute Assessment and Plan: 06/12/2020 Continue Memantine and Donepezil, attempt to reorient Pt 06/14/2020 Daughter today states Pt is basically at her baseline and notes that Pt does fluctuate at times. (6) Osteoporosis: Code(s): M81.0 - Age-related osteoporosis without current pathological fracture Status: Acute Assessment and Plan: 06/12/2020 Continue Raloxifene, started on Oscal in ER. 06/14/2020 Continue with regimen (7) Hypothyroidism: Code(s): E03.9 - Hypothyroidism, unspecified Status: Acute Assessment and Plan: 06/12/2020 Continue Levothyroxine 06/14/2020 ... (8) High cholesterol: Code(s): E78.00 - Pure hypercholesterolemia, unspecified Status: Acute Assessment and Plan: 06/12/2020 Continue Simvastatin 06/14/2020 ... (9) Depression: Code(s): F32.9 - Major depressive disorder, single episode, unspecified Status: Acute Assessment and Plan: 06/12/2020 Continue Bupropion and Lexapro, monitor Pt mood and affect. 06/14/2020 ... Subjective Date/time seen: 06/14/20 14:28 Pt has not complaints until a food try is placed in front of her. Pt then states she does not have and appetite and once in a while will say she feels ikky pointing at her epigastric area. Pt does have some belching once in a while. She has taken Compazine and this has helped a little. Added Reglan today to see if this may help do more then pecking at her food with minimal intake. Denies SOB, CP, body aches, changes in taste (previous COVID 06/01/2020). She does admit at times that she is a little tired. Review of Systems Review of Systems: Narrative: As noted in Subjective above. Exam Const: General: cooperative, comfortable, no acute distress, alert, awake, Physically active and confusion (at times) Nutritional Appearance: obese Resp: Effort & Inspection: normal respiratory effort, no cough, not labored, no nasal flaring and no respiratory distress Auscultation: clear to auscultation bilaterally Cardio: Rate: regular rate Heart sounds: S1 normal heart sound present and S2 normal heart sound present GI: GI Palp: Ye
[2020-06-14 16:00] VITALS: BP 122/60; PULSE 64; RESP 18; TEMP 36.9; O2SAT 95
[2020-06-14] MEDS: METOCLOPRAMIDE HCL 5 MG TABLET PO ×2 (16:48→20:30)
[2020-06-14 16:53] LABS: Glucose Point of Care 127 (65-105)
[2020-06-14 18:38] LABS: Occult Blood Negative (Negative)
[2020-06-14 20:00] VITALS: BP 127/50; PULSE 68; RESP 18; TEMP 36.7; O2SAT 94
[2020-06-14] MEDS: FELODIPINE 2.5 MG TABCR 10 MG PO (20:25)
[2020-06-14] MEDS: SIMVASTATIN 10 MG TABLET PO (20:26)
[2020-06-14 20:35] LABS: Glucose Point of Care 117 (65-105)
[2020-06-15] VITALS: BP 132/49; PULSE 69; RESP 18; TEMP 37.1; O2SAT 92
[2020-06-15 04:00] VITALS: BP 130/55; PULSE 67; RESP 18; TEMP 36.4; O2SAT 92
[2020-06-15] MEDS: SODIUM CHLORIDE 0.9% IV 1,000 ML 100 ML IV CONT (04:59)
[2020-06-15 05:24] LABS: Hematocrit 35.3 % (35.0-42.0); Mean Corpuscular HGB Conc 31.2 g/dL (32.0-36.0); Mean Corpuscular Hemoglobin 30.6 pg (27.0-31.0); Mean Corpuscular Volume 98.1 fL (78.0-102.0); Mean Platelet Volume 9.5 fl (9.2-11.8); Platelet Count Result 310 K/mm3 (150-420); Red Cell Distribution Width 13.3 % (11.6-14.4); White Blood Count 4.5 K/mm3 (4.8-10.8)
[2020-06-15 05:39] LABS: Albumin Level 2.5 g/dL (3.4-5.0); Alkaline Phosphatase 69 U/L (46-116); Anion Gap 9 mmol/L (8-16); Aspartate Amino Transferase 20 U/L (15-37); Bilirubin,Total 0.4 mg/dL (0.00-1.00); Blood Urea Nitrogen 1 mg/dL (7-18); Calcium 7.7 mg/dL (8.5-10.1); Carbon Dioxide 25 mmol/L (21-32); Chloride 109 mmol/L (98-108); Estimated CRCL calculation 50 ml/min; Estimated Glomerular Filt Rate > 60; Glucose 111 mg/dL (70-99); Magnesium 1.9 mg/dL (1.8-2.4); Osmolality Calculated 292 mOsm/kg (285-295); Potassium 3.4 mmol/L (3.5-5.1); Sodium 143 mmol/L (136-145); Total Protein 5.9 g/dL (6.4-8.2)
[2020-06-15 05:40] LABS: Alanine Aminotransferase < 6 U/L (14-59)
[2020-06-15] MEDS: METOCLOPRAMIDE HCL 5 MG TABLET PO (06:10)
--- NOTE | 2020-06-15 06:17 | PC.NURSE ---
Lab results this AM, BUN was 1. Charge nurse notified and spoke with . New orders to stop fluids and saline lock IV. Automobile Body Repairer stopped IV fluids, NS @100cc/hr, at 0611.
[2020-06-15 07:42] VITALS: BP 113/53; PULSE 72; RESP 18; TEMP 37.2; O2SAT 94
[2020-06-15 07:50] LABS: Glucose Point of Care 111 (65-105)
[2020-06-15] MEDS: BUPROPION SR 100 MG TABLET PO (09:32)
[2020-06-15] MEDS: RALOXIFENE 60 MG TABLET PO (09:32)
[2020-06-15] MEDS: ENOXAPARIN 40 MG/0.4 ML SYRINGE SUB-Q (09:32)
[2020-06-15] MEDS: MAGNESIUM OXIDE 400 MG TABLET PO (09:33)
[2020-06-15] MEDS: CALCIUM CARBONATE (OSCAL) 500 MG TABLET PO (09:33)
[2020-06-15] MEDS: POTASSIUM CHLORIDE 20 MEQ TABLET PO (09:33)
[2020-06-15] MEDS: DONEPEZIL HCL 5 MG TABLET 10 MG PO (09:33)
[2020-06-15] MEDS: ESCITALOPRAM OXALATE 10 MG TABLET 20 MG PO (09:33)
[2020-06-15] MEDS: LEVOTHYROXINE SODIUM 75 MCG TABLET PO (09:34)
[2020-06-15] MEDS: MEMANTINE 5 MG TABLET 10 MG PO (09:34)
[2020-06-15] MEDS: LOSARTAN POTASSIUM 50 MG TABLET 100 MG PO (09:34)
[2020-06-15] MEDS: PANTOPRAZOLE 40 MG TABLET PO (09:34)
[2020-06-15] MEDS: MAG HYDROX/AL HYDROX/SIMETH 30 ML UDC PO (11:29)
[2020-06-15] MEDS: LOPERAMIDE HCL 2 MG CAPSULE 4 MG PO (11:29)
[2020-06-15] MEDS: METOCLOPRAMIDE HCL 10 MG TABLET 5 MG PO (11:30)
[2020-06-15 11:39] LABS: Glucose Point of Care 112 (65-105)
[2020-06-15 12:00] VITALS: BP 124/60; PULSE 72; RESP 18; TEMP 37.1; O2SAT 94
--- NOTE | 2020-06-15 12:14 | PM.DS ---
DS: Admitting Diagnosis Admitting Diagnosis Admitting Diagnosis: Pneumonia, Weakness, Elevated D-Dimer <Arden SantosADRIAN Akins - Last Filed: 06/15/20 12:59> DS: Discharge Diagnosis Discharge Diagnosis (1) Pneumonia: Qualifiers: Laterality: right Lung location: middle lobe of lung Pneumonia type: due to unspecified organism Qualified Code(s): J18.9 - Pneumonia, unspecified organism <Arden TomADRIAN Akins - Last Filed: 06/15/20 12:59> Code(s): J18.9 - Pneumonia, unspecified organism <Arden SantosADRIAN Akins - Last Filed: 06/15/20 12:59> Status: Acute <Arden Sadler ADRIAN Talamantes - Last Filed: 06/15/20 12:59> Assessment and Plan: 06/12/2020 Radiology reports Right mid and lower lung pneumonia, Rocephin and Azithromycin started, SpO2 > 95%, administer supplemental O2 as needed, monitor VS and Pt 06/14/2020 May possibly send Pt home tomorrow, She would benefit with PT, spoke with Daughter Maribel who lives with the Pt and she thinks PT would be a good idea. 06/15/2020 HH has been set up and Pt will be seen by them on Monday is my understanding, will send Pt home with Azithromycin, Pt continues to be on room air, daughter Maribel will be assisting Pt after DC at home. <ADRIAN Comer - Last Filed: 06/15/20 12:59> (2) Elevated d-dimer: Code(s): R79.89 - Other specified abnormal findings of blood chemistry <ADRIAN Comer - Last Filed: 06/15/20 12:59> Status: Acute <Arden TomADRIAN Akins - Last Filed: 06/15/20 12:59> Assessment and Plan: 06/12/2020 Started on Lovenox 90 mg SQ BID, Pt to have VQ scan today, result of VQ scan was low probability of PE 06/14/2020 Lovenox decreased yesterday after VQ scan results, no increase in Oxygen demands, no calf or leg tenderness, no pitting edema bilateral LE 06/15/2020 Pt has not had any increased O2 demand, no labored breathing <ADRIAN Comer - Last Filed: 06/15/20 12:59> (3) Diabetes: Code(s): E11.9 - Type 2 diabetes mellitus without complications <ADRIAN Comer - Last Filed: 06/15/20 12:59> Status: Acute <ADRIAN Comer - Last Filed: 06/15/20 12:59> Assessment and Plan: 06/12/2020 Previous charts indicates diet controlled, ACHS Accu-Cheks, SSI, hypoglycemic protocol ordered, make any adjustments as need 06/14/2020 Diet changes to Consistent Carb Diet, glucose levels look good. 06/15/2020 glucose looks well controlled, Pt to f/u with PCP after DC in about 1 week <ADRIAN Comer - Last Filed: 06/15/20 12:59> (4) HTN (hypertension): Code(s): I10 - Essential (primary) hypertension <ADRIAN Comer - Last Filed: 06/15/20 12:59> Status: Acute <ADRIAN Comer - Last Filed: 06/15/20 12:59> Assessment and Plan: 06/12/2020 Continue Losartan and Felodipine, monitor VS, make any adjustments as needed 06/14/2020 no adjustments needed at this time. 06/15/2020 continue current medications on DC <ADRIAN Comer - Last Filed: 06/15/20 12:59> (5) Dementia: Code(s): F03.90 - Unspecified dementia without behavioral disturbance <ADRIAN Comer - Last Filed: 06/15/20 12:59> Status: Acute <ADRIAN Comer - Last Filed: 06/15/20 12:59> Assessment and Plan: 06/12/2020 Continue Memantine and Donepezil, attempt to reorient Pt 06/14/2020 Daughter today states Pt is basically at her baseline and notes that Pt does fluctuate at times. 06/15/2020 no changes to medications <ADRIAN Comer - Last Filed: 06/15/20 12:59> (6) Osteoporosis: Code(s): M81.0 - Age-related osteoporosis without current pathological fracture <ADRIAN Comer - Last Filed: 06/15/20 12:59> Status: Acute <ADRIAN Comer - Last Filed: 06/15/20 12:59> Assessment and Plan: 06/12/2020 Continue Raloxifene, started on Oscal in ER.
--- NOTE | 2020-06-17 11:19 | PC.NURSE ---
Pt states she received and understood her discharge instructions. Pt has no other comments.
== END 2020-06-15 13:35 | disposition home health service (06) | DRG 195 ==
LOC: CHSED 14:22 → CHS2ND 14:26
PROVIDERS: Emergency Medicine; Nurse Practitioner Family; Admitting Provider Emergency Medicine; Emergency Provider Emergency Medicine; PCP Internal Medicine; Visit Provider Emergency Medicine
DX: J18.9 Pneumonia, unspecified organism (principal); I10 Essential (primary) hypertension; E11.9 Type 2 diabetes mellitus without complications; E78.5 Hyperlipidemia, unspecified; M19.90 Unspecified osteoarthritis, unspecified site; R19.7 Diarrhea, unspecified; K21.9 Gastro-esophageal reflux disease without esophagitis; R42 Dizziness and giddiness; E78.00 Pure hypercholesterolemia, unspecified; E03.9 Hypothyroidism, unspecified; M81.0 Age-related osteoporosis without current pathological fracture; R63.5 Abnormal weight gain; F03.90 Unspecified dementia, unspecified severity, without behavioral disturbance, psychotic disturbance, mood disturbance, and anxiety; F32.9 Major depressive disorder, single episode, unspecified; F41.9 Anxiety disorder, unspecified; Z86.16 Personal history of COVID-19; G31.83 Neurocognitive disorder with Lewy bodies; F02.80 Dementia in other diseases classified elsewhere, unspecified severity, without behavioral disturbance, psychotic disturbance, mood disturbance, and anxiety; Z85.828 Personal history of other malignant neoplasm of skin
CPT/HCPCS: 36415; 36600; 71046; 78580; 80048; 80053; 81001; 82805; 82948; 83605; 83735; 83880; 84484; 85025; 85027; 85380; 85610; 85730; 86140; 87040; 87045; 87046; 87324; 87426; 87427; 87804; 89055; 93005; 96361; 96374; 97161; 97530; 99285; A9270; A9540; C9803; J0456; J0696; J1650; J3475; J3480; J7030; J7040

== ENCOUNTER 2020-08-13 11:00 | Outpatient (CLI) | payer MEDICARE, SELFPAY ==
[2020-08-13 11:14] LABS: Basophils Absolute Auto 0.04 K/mm3 (0.00-0.10); Basophils Percent Auto 0.6 % (0.0-1.0); Eosinophils Absolute Auto 0.08 K/mm3 (0.02-0.50); Eosinophils Percent Auto 1.3 % (1.0-6.0); Hematocrit 40.2 % (35.0-42.0); Hemoglobin 12.5 g/dL (11.7-13.8); Immature Granulocyte Absolute 0.02 K/mm3 (0.00-0.00); Immature Granulocyte Percent A 0.3 % (0.0-0.0); Lymphocytes Absolute Auto 1.91 K/mm3 (1.10-4.50); Lymphocytes Percent Auto 30.8 % (18.0-42.0); Mean Corpuscular HGB Conc 31.1 g/dL (32.0-36.0); Mean Corpuscular Hemoglobin 31.3 pg (27.0-31.0); Mean Corpuscular Volume 100.5 fL (78.0-102.0); Mean Platelet Volume 10.6 fl (9.2-11.8); Monocytes Absolute Auto 0.55 K/mm3 (0.10-0.90); Monocytes Percent Auto 8.9 % (2.0-11.0); Neutrophils Absolute Auto 3.6 K/mm3 (1.7-7.2); Neutrophils Percent Auto 58.1 % (50.0-70.0); Platelet Count Result 239 K/mm3 (150-420); Red Cell Distribution Width 14.3 % (11.6-14.4); White Blood Count 6.2 K/mm3 (4.8-10.8)
[2020-08-13 11:27] LABS: Hemoglobin A1C 6.6 % (<5.7)
[2020-08-13 11:51] LABS: Alanine Aminotransferase 20 U/L (14-59); Albumin Level 3.4 g/dL (3.4-5.0); Alkaline Phosphatase 77 U/L (46-116); Anion Gap 10 mmol/L (8-16); Aspartate Amino Transferase 17 U/L (15-37); Bilirubin,Total 0.7 mg/dL (0.00-1.00); Blood Urea Nitrogen 19 mg/dL (7-18); Calcium 8.8 mg/dL (8.5-10.1); Carbon Dioxide 28 mmol/L (21-32); Chloride 105 mmol/L (98-108); Estimated Glomerular Filt Rate 47; Glucose 159 mg/dL (70-99); Osmolality Calculated 301 mOsm/kg (285-295); Potassium 4.1 mmol/L (3.5-5.1); Sodium 143 mmol/L (136-145); Thyroid Stimulating Hormone 5.96 uIU/mL (0.36-3.74); Total Protein 6.7 g/dL (6.4-8.2)
[2020-08-14 09:29] LABS: Add Urine Microscopic? YES; Appearance Urine Clear (Clear); Bilirubin Urine Negative (Negative); Blood Urine Negative (Negative); Color Urine Yellow (Yellow); Glucose Urine UA Negative (Negative); Ketones Urine Negative (Negative); Leukocyte Esterase Ur Trace LEU/UL (Negative); Nitrate Urine Negative (Negative); Protein Urine Negative (Negative); Specific Grav Ur 1.015 (1.010-1.020); Urobilinogen Urine 0.2 mg/dL (0.2-1.0)
[2020-08-14 09:31] LABS: Bacteria Urine Trace /hpf; RBC Urine None seen /hpf (0-2); Squamous Epithelial Cell Urine Few /hpf (Few); WBC Urine 0-3 /hpf (0-3)
== END 2020-08-13 11:01 | disposition home or self-care (01) ==
LOC: CHSLAB 11:03
PROVIDERS: PCP Internal Medicine; Visit Provider Internal Medicine
DX: E11.9 Type 2 diabetes mellitus without complications (principal); I10 Essential (primary) hypertension; E03.9 Hypothyroidism, unspecified
CPT/HCPCS: 36415; 80053; 81001; 83036; 84443; 85025

== ENCOUNTER 2020-11-08 09:10 | Outpatient (NON) | payer MEDICARE, SELFPAY | END 2020-11-08 09:11 | disposition home or self-care (01) | LOC: CHSLAB 09:12 | PROVIDERS: PCP Internal Medicine; Visit Provider Nurse Practitioner Family | DX: N39.0 Urinary tract infection, site not specified (principal) | CPT/HCPCS: 87086 ==

== ENCOUNTER 2021-05-10 16:00 | Outpatient (CLI) | payer MEDICARE, SELFPAY ==
--- NOTE | ~2021-05-10 | XR_ITS ---
EXAMINATION: XR ankle RT 2V, XR foot RT 2V DATE: 05/10/2021 16:29 INDICATION: Right foot and ankle pain TECHNIQUE: 1. Anteroposterior and lateral view of the right ankle were obtained. 2. Dorsoplantar and lateral views of the right foot were obtained. COMPARISON: None. FINDINGS: Valgus angulation of the first-third toes. Otherwise normal alignment of the right foot and ankle No fractures. Mild polyarticular osteoarthritis involving the right ankle and multiple joints throughout the right foot. Small plantar calcaneal spur. Diffuse osteopenia. Soft tissues are unremarkable. No ankle joint effusion. IMPRESSION: 1. 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 2. Diffuse osteopenia. Reviewed, dictated and finalized at location A. GAGE OR LOAN UNDERWRITER IMPRESSION: 1. 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 2. Diffuse osteopenia.
== END 2021-05-10 16:01 | disposition home or self-care (01) ==
LOC: CHSIMG 16:02
PROVIDERS: PCP Internal Medicine; Visit Provider Internal Medicine
DX: M79.671 Pain in right foot (principal); M25.571 Pain in right ankle and joints of right foot
CPT/HCPCS: 73600; 73620

== ENCOUNTER 2022-04-11 14:32 | Emergency (ER) | payer MEDICARE, SELFPAY ==
[2022-04-11 15:08] VITALS: BP 155/75; PULSE 69; RESP 16; TEMP 37.2; O2SAT 96
[2022-04-11 15:44] LABS: Basophils Absolute Auto 0.04 K/mm3 (0.00-0.10); Basophils Percent Auto 0.6 % (0.0-1.0); Eosinophils Absolute Auto 0.04 K/mm3 (0.02-0.50); Eosinophils Percent Auto 0.6 % (1.0-6.0); Hematocrit 38.9 % (35.0-42.0); Hemoglobin 12.3 g/dL (11.7-13.8); Immature Granulocyte Absolute 0.02 K/mm3 (0.00-0.00); Immature Granulocyte Percent A 0.3 % (0.0-0.0); Lymphocytes Absolute Auto 1.43 K/mm3 (1.10-4.50); Mean Corpuscular HGB Conc 31.6 g/dL (32.0-36.0); Mean Corpuscular Hemoglobin 31.9 pg (27.0-31.0); Mean Corpuscular Volume 100.8 fL (78.0-102.0); Mean Platelet Volume 10.8 fl (9.2-11.8); Monocytes Absolute Auto 0.59 K/mm3 (0.10-0.90); Monocytes Percent Auto 8.7 % (2.0-11.0); Neutrophils Absolute Auto 4.7 K/mm3 (1.7-7.2); Neutrophils Percent Auto 68.8 % (50.0-70.0); Platelet Count Result 241 K/mm3 (150-420); Red Blood Count 3.86 M/mm3 (4.20-5.40); Red Cell Distribution Width 13.8 % (11.6-14.4); White Blood Count 6.8 K/mm3 (4.8-10.8)
--- NOTE | 2022-04-11 15:48 | ED.WEAKNESS ---
HPI - Weakness General Chief complaint: Urogenital-Female Stated complaint: possible uti Time Seen by Provider: 04/11/22 14:50 Source: patient, family and RN notes reviewed Mode of arrival: EMS Limitations: no limitations History of Present Illness HPI Narrative: Family states patient has had increased weakness , poor appetite and decreased urination getting worse over the last 3 days. He says she gets this way when she is having a urinary tract infection. She denies any significant pain. She denies any fever chills, nausea or vomiting. MD Complaint: generalized weakness Onset (ago): day(s) (3) Duration: constant Location: generalized Migration: none Severity: moderate Relieving factors: none Exacerbating factors: none Related Data Home Medications Medication Instructions Recorded Confirmed donepezil 10 mg tablet 10 mg PO DAILY 05/23/19 06/11/20 escitalopram oxalate 20 mg tablet 20 mg PO DAILY 05/23/19 06/11/20 (Lexapro) felodipine 10 mg tablet,extended 10 mg PO HS 05/23/19 06/11/20 release 24 hr levothyroxine 75 mcg tablet 75 mcg PO DAILY 05/23/19 06/11/20 memantine 10 mg tablet 10 mg PO BID 05/23/19 06/11/20 omeprazole 20 mg capsule,delayed 20 mg PO DAILY 05/23/19 06/11/20 release raloxifene 60 mg tablet 60 mg PO DAILY 05/23/19 06/11/20 simvastatin 10 mg tablet 10 mg PO HS 05/23/19 06/11/20 bupropion HCl 100 mg tablet,12 hr 100 mg PO DAILY 06/11/20 06/11/20 sustained-release losartan 50 mg tablet 100 mg PO DAILY 06/11/20 06/11/20 Allergies Allergy/AdvReac Type Severity Reaction Status Date / Time hydrochlorothiazide Allergy Unknown Flushing Verified 06/11/20 13:00 iohexol Allergy Hives Verified 06/11/20 13:00 [From contrast - CT, X-RAY] Review of Systems Review of Systems: All systems reviewed & are unremarkable except as noted in HPI and below PMFSH Past Medical History Medical History (Updated 04/11/22 @ 16:45 by Kenney Wynn MD) Anxiety Arthritis Basal cell carcinoma (BCC) of dorsum of nose Dementia Depression Diabetes Diarrhea Dizziness GERD (gastroesophageal reflux disease) Headache High cholesterol HTN (hypertension) Hypothyroidism Osteoporosis Vertigo Vision abnormalities Weight gain Surgical History Surgical History History of spinal surgery Cemented disc, lumbar Family History Family History Mother Diabetes mellitus Family history of malignant neoplasm Father Cerebrovascular accident Family history of heart disease in male family member before age 55 Other Arthritis Social History Social History Smoking status: Never smoker Second hand tobacco smoke exposure: No Alcohol intake: never Substance use: never Substance use type: does not use Gender identity (if verbalized by the patient): Female Spiritual care concerns: No Exam Const: General: healthy appearing, no acute distress and alert Nutritional Appearance: well nourished Orientation/consciousness: patient oriented x3 Limitations: no limitations HENMT: Head: normal to inspection Ears: external ears normal Face/Nose/Sinus: Normal external nose present Face and sinus: normal facial exam Mouth: Yes moist mucous membranes Eyes: Conjunctivae: conjunctivae normal Pupils: Equal, round and reactive pupils present EOM: EOMs intact bilaterally Neck: Neck: normal visual inspection Resp: Effort & Inspection: normal respiratory effort Auscultation: clear to auscultation bilaterally Cardio: Rate: regular rate Rhythm: regular rhythm Heart sounds: no murmurs GI: GI Palp: Yes Soft to palpation and No Tenderness to palpation present (GI) Auscultation: normal bowel sounds Back/Spine/Pelvis: Cervical Spine: cervical ROM normal Thoracic/Lumbar Spine: thoraco-lumbar ROM normal Skin: General skin exam: normal color Ra
[2022-04-11 15:57] LABS: Add Urine Microscopic? YES; Appearance Urine Clear (Clear); Bilirubin Urine 1+ (Negative); Blood Urine Trace-Intact (Negative); Color Urine Yellow (Yellow); Glucose Urine UA Negative (Negative); Ketones Urine Negative (Negative); Leukocyte Esterase Ur 1+ LEU/UL (Negative); Nitrate Urine Negative (Negative); Protein Urine 1+ (Negative); Urobilinogen Urine 0.2 mg/dL (0.2-1.0)
[2022-04-11 15:58] LABS: Alanine Aminotransferase 10 U/L (14-59); Albumin Level 3.2 g/dL (3.4-5.0); Alkaline Phosphatase 71 U/L (46-116); Anion Gap 6 mmol/L (8-16); Aspartate Amino Transferase 13 U/L (15-37); Bilirubin,Total 0.8 mg/dL (0.00-1.00); Blood Urea Nitrogen 10 mg/dL (7-18); Calcium 8.5 mg/dL (8.5-10.1); Carbon Dioxide 32 mmol/L (21-32); Chloride 105 mmol/L (98-108); Estimated Glomerular Filt Rate 40; Glucose 181 mg/dL (70-99); Magnesium 1.7 mg/dL (1.8-2.4); Osmolality Calculated 300 mOsm/kg (285-295); Sodium 143 mmol/L (136-145); Total Protein 6.6 g/dL (6.4-8.2)
[2022-04-11 15:59] LABS: CRP < 0.5 mg/dL (0.0-0.9)
[2022-04-11 16:09] LABS: Bacteria Urine 2+ /hpf; Squamous Epithelial Cell Urine Rare /hpf (Few); WBC Urine 21-30 /hpf (0-3)
[2022-04-11] MEDS: cefTRIAXone 1 GM, LIDOCAINE HCL 1% LOCAL INJ 2.1 ML IM (16:52)
[2022-04-11 17:00] VITALS: BP 141/68; PULSE 68; RESP 16; TEMP 36.8; O2SAT 100
--- NOTE | 2022-04-13 13:17 | PC.NURSE ---
PRELIMINARY URINE CULTURE RESULT: GREATER THAN 100, 000 CFU/ML OF E COLI. PER DR YPA, TO AWAIT SENSITIVITIES FOR FURTHER INSTRUCTION.
== END 2022-04-11 17:01 | disposition home or self-care (01) ==
PROVIDERS: Emergency Provider Emergency Medicine; PCP Internal Medicine
DX: N30.01 Acute cystitis with hematuria (principal); E87.6 Hypokalemia; E83.42 Hypomagnesemia; F03.90 Unspecified dementia, unspecified severity, without behavioral disturbance, psychotic disturbance, mood disturbance, and anxiety; I10 Essential (primary) hypertension; E03.9 Hypothyroidism, unspecified; E11.9 Type 2 diabetes mellitus without complications; F41.9 Anxiety disorder, unspecified; F32.9 Major depressive disorder, single episode, unspecified
CPT/HCPCS: 36415; 80053; 81001; 83735; 85025; 86140; 87077; 87086; 87088; 87186; 96372; 99283; J0696